=== PATIENT | male | born 2000 | race Caucasian/White ===

== ENCOUNTER 2018-08-17 05:23 | Observation (INO) | payer BC ==
[2018-08-17] MEDS ORDERED: NS 0.9% 1000 ML** 1,000 ML IV ONE (05:49)
[2018-08-17] MEDS ORDERED: Ondansetron INJ* 2 MG/ML VIAL IV ONE (05:49)
--- NOTE | 2018-08-17 05:51 | ED ---
Abdominal Pain/Male - HPI Summary HPI Summary: Pt. is a 18 y.o male who presents to the ER for N/V and abdominal pain x 2 days. Pt. notes he started with vomiting and went to and was rx zofran. Pt. states he continued to vomit even with taking zofran. Pt. states today he started with RLQ abd. pain that has been getting constant. Pain is increased with movement and walking. Associated sxs of chills. No past medical hx. Sxs are moderate in severity. No sx hx. - History of Current Complaint Chief Complaint: EDAbdPain Stated Complaint: RIGHT ABD PAIN PER PT Time Seen by Provider: 08/17/18 05:34 Hx Obtained From: Patient Pain Intensity: 5 - Allergies/Home Medications Allergies/Adverse Reactions: Allergies Allergy/AdvReac Type Severity Reaction Status Date / Time No Known Allergies Allergy Verified 08/17/18 05:33 PMH/Surg Hx/FS Hx/Imm Hx Previously Healthy: Yes Infectious Disease History: No Infectious Disease History: Denies: Traveled Outside the [place] in Last 30 Days - Family History Known Family History: Positive: Non-Contributory - Social History Occupation: Student Lives: With Family Review of Systems Positive: Chills. Negative: Fever Eyes: Negative ENT: Negative Cardiovascular: Negative Respiratory: Negative Positive: Abdominal Pain, Vomiting, Nausea. Negative: Diarrhea Genitourinary: Negative Negative: dysuria, discharge, flank pain Neurological: Negative All Other Systems Reviewed And Are Negative: Yes Physical Exam Triage Information Reviewed: Yes Vital Signs On Initial Exam: Initial Vitals Temp Pulse Resp BP Pulse Ox 97.5 F 68 16 147/96 96 08/17/18 05:30 08/17/18 05:30 08/17/18 05:30 08/17/18 05:30 08/17/18 05:30 Vital Signs Reviewed: Yes Appearance: Positive: Well-Appearing - Pt. sitting up in bed in NAD. Pleasant. Skin: Positive: Warm, Dry Head/Face: Positive: Normal Head/Face Inspection Eyes: Positive: Normal, EOMI, LASHONDA Neck: Positive: Supple Respiratory/Lung Sounds: Positive: Clear to Auscultation, Breath Sounds Present Cardiovascular: Positive: Normal, RRR Abdomen Description: Positive: Other: - Abd. is soft with moderate tenderness to RLQ. Musculoskeletal: Positive: Normal, Strength/ROM Intact Neurological: Positive: Normal, CN Intact II-III Psychiatric: Positive: Affect/Mood Appropriate Diagnostics - Vital Signs Vital Signs Temp Pulse Resp BP Pulse Ox 08/17/18 05:30 97.5 F 68 16 147/96 96 - Laboratory Result Diagrams: 08/17/18 05:54 08/17/18 05:54 Lab Statement: Any lab studies that have been ordered have been reviewed, and results considered in the medical decision making process. Abdominal Pain Male Course/Dx - Course Course Of Treatment: patient presenting with right lower quadrant abdominal pain. Is afebrile with stable vital signs. Patient initially declines pain medication. We'll obtain labs and CT scan to evaluate for potential appendicitis. Labs showed WBC of 22,000. Patient started complaining of more pain and was given a dose of Toradol with good improvement. CT scan per radiology: IMPRESSION: #. Acute appendicitis with significant periappendiceal inflammatory change and small. volume of ascites. Negative for free air or loculated periappendiceal abscess collection. Negative for associated bowel obstruction. On-call surgery was paged, Dr. Garcia, who promptly evaluated patient in the ER and took him to the OR for appendectomy. Patient given a dose of Zosyn on the way to the OR. - Diagnoses Differential Diagnosis/HQI/PQRI: Appendicitis, Renal Colic, Testicular Torsion, Ureteral Stone Provider Diagnoses: Appendicitis Discharge - Sign-Out/Discharge Documenting (check all that apply): Patient Departure Patient Received Moderate/Deep Sedation with Procedure: No - Discharge Plan Condition: Stable Disposition: ADMITTED TO [facility] - Billing Disposition and Condition Condition: STABLE Disposition: Admitted to [facility]
[2018-08-17 06:19] LABS: ALT 13 U/L (7-52); AST 18 U/L (13-39); Albumin 4.9 g/dL (3.2-5.2); Albumin/Globulin Ratio 1.7 (1-3); Alkaline Phosphatase 43 U/L (34-104); Anion Gap 11 mmol/L (2-11); BUN/Creatinine Ratio 14.3 (8-20); Blood Urea Nitrogen 13 mg/dL (6-24); C Reactive Protein 11.67 mg/L (<8.01); CO2 Carbon Dioxide 28 mmol/L (22-32); Calcium 10.2 mg/dL (8.6-10.3); Chloride 96 mmol/L (101-111); EGFR African American 128.5 (>60); EGFR Non-African American 106.2 (>60); Globulin 2.9 g/dL (2-4); Glucose 129 mg/dL (70-100); Sodium 135 mmol/L (135-145); Total Protein 7.8 g/dL (6.4-8.9)
[2018-08-17 06:29] LABS: Hematocrit 46 % (42-52); Hemoglobin 16.2 g/dL (14.0-18.0); Mean Corpuscular HGB Conc 36 g/dL (31-36); Mean Corpuscular Hemoglobin 33 pg (27-31); Mean Corpuscular Volume 93 fL (80-94); Mean Platelet Volume 8.7 fL (7.4-10.4); Platelet Count 274 10^3/uL (150-450); Red Blood Count 4.89 10^6 /uL (4.18-5.48); Red Cell Distribution Width 13 % (10-15); White Blood Count 22.3 10^3/uL (3.5-10.8)
[2018-08-17] MEDS ORDERED: Ketorolac INJ* 30 MG/ML 1 ML VIAL IV PUSH ONE (06:38)
[2018-08-17] MEDS ORDERED: Iohexol 300* (CONTRAST) 10 ML SDV IV ONE (07:09)
[2018-08-17 07:27] LABS: ABS Basophils 0.1 10^3/ul (0-0.2); ABS Lymphocytes 2.2 10^3/ul (1.0-4.8); ABS Monocytes 2.1 10^3/ul (0-0.8); Eosinophil % 0.1 %; Lymphocyte % 9.7 %; Nucleated Red Blood Cells % 0.1
[2018-08-17] MEDS ORDERED: ED Piperacillin/Tazobac 3.375 3.375 GM/100 ML PREMIX.SET IVPB ONE (09:20)
[2018-08-17] MEDS ORDERED: Bupivacaine 0.5%* 50 ML VIAL ONE (09:25)
[2018-08-17] MEDS ORDERED: ceFOXitin 2 GM IVPREMIX* 2 GM/50 ML BAG ONE (09:37)
[2018-08-17] MEDS ORDERED: Naloxone* 0.4 MG/ML 1 ML VIAL IV PRN (09:49)
[2018-08-17] MEDS ORDERED: fentaNYL* 50 MCG/ML 2 ML VIAL (100 MCG VIAL) IV PRN (09:49)
[2018-08-17] MEDS ORDERED: Ondansetron INJ* 2 MG/ML VIAL IV PRN (09:49)
[2018-08-17] MEDS ORDERED: DiMENhydriNATE IV* 50 MG/ML VIAL IV PUSH PRN (09:49)
[2018-08-17] MEDS ORDERED: HYDROmorphone INJ1* 1 MG/ML SYRINGE IV PRN (09:49)
[2018-08-17] MEDS ORDERED: Acetaminophen IV 1GM/100ML * 1,000 MG/100 ML VIAL IVPB ONE (09:49)
[2018-08-17] MEDS ORDERED: HYDROcodone/ACETAMIN 5-325 MG* 1 TAB PO PRN (09:49)
[2018-08-17] MEDS ORDERED: Ketorolac INJ* 30 MG/ML 1 ML VIAL IV PRN (09:49)
[2018-08-17] MEDS ORDERED: Midazolam* 1 MG/ML 2 ML VIAL (2 MG) ONE (09:55)
[2018-08-17] MEDS ORDERED: fentaNYL* 50 MCG/ML 5 ML VIAL (250 MCG VIAL) ONE (09:55)
[2018-08-17] MEDS ORDERED: Rocuronium* 10 MG/ML VIAL ONE (09:55)
[2018-08-17] MEDS ORDERED: Lidocaine 2% PF * 5 ML VIAL ONE (09:55)
[2018-08-17] MEDS ORDERED: Succinylcholine* 20 MG/ML 10 ML VIAL ONE (09:58)
[2018-08-17] MEDS ORDERED: Ondansetron INJ* 2 MG/ML VIAL ONE (10:30)
[2018-08-17] MEDS ORDERED: Dexamethasone IV* 4 MG/ML 1 ML (4 MG) ONE (10:30)
--- NOTE | 2018-08-17 10:46 | HP ---
ADMISSION HISTORY AND PHYSICAL: DATE OF ADMISSION: 08/17/18 CHIEF COMPLAINT: Abdominal pain. HISTORY OF PRESENT ILLNESS: This pleasant 18-year-old gentleman presented to the emergency room with abdominal pain. The pain started Saturday night, which was more of a discomfort and general nausea and uneasy feeling in his abdomen, and this persisted. He went to the urgent care on Saturday where he was diagnosed with gastroenteritis with the symptoms persisted and then over the last 6 hours, localized to the right lower quadrant. He came to the emergency room. Workup there included CT scan of the abdomen and pelvis, which revealed appendicitis. He had an elevated white blood cell count. PAST MEDICAL HISTORY: Denies history of cardiac, liver, kidney, or lung disease. PAST SURGICAL HISTORY: No prior abdominal surgery. MEDICATIONS: None. ALLERGIES: None. FAMILY HISTORY: Two relatives had appendicitis. I spoke to his mother who is coming in from [place]. SOCIAL HISTORY: He is a college student at [employer]. No tobacco or alcohol use. REVIEW OF SYSTEMS: General: Denies weight loss or change of appetite. HEENT: No changes in vision, hearing, or swallowing. No sore throat. Cardiac: No chest pain. Pulmonary: No cough. GI: No blood per rectum. : No hematuria. Skin: Denies rash. Neuro: No headache or dizziness. Musculoskeletal: No extremity weakness. Psych: No anxiety or depression. PHYSICAL EXAMINATION GENERAL: Pleasant gentleman, complaining of some abdominal discomfort. HEENT: The sclerae are anicteric. Oral mucosa is pink and moist. NECK: Supple. No JVD. No masses. LUNGS: Clear. HEART: Regular. ABDOMEN: Soft, nondistended. Tender in the right lower quadrant. No masses or organomegaly. EXTREMITIES: No clubbing, cyanosis or edema. GENITOURINARY: The genitalia appear normal. NEUROLOGIC: Grossly intact. No focal motor or sensory deficits. SKIN: No rash, petechiae, or jaundice. IMPRESSION AND PLAN: Appendicitis. We discussed surgery, laparoscopic appendectomy with risks including, but not limited to, bleeding, infection, injury to intra-abdominal contents including the bowel, the possibility of an open procedure. He seemed to understand and agreed to the procedure, and all questions were answered. [id number]/[facility] #: [id number] [facility] CENTERAnnette
--- NOTE | 2018-08-17 12:07 | OP ---
DATE OF OPERATION: 08/17/18 - ROOM #340 DATE OF : 89 ATTENDING SURGEON: Collin Garcia MD PRE-OP DIAGNOSIS: Appendicitis. POST-OP DIAGNOSIS: Appendicitis. OPERATIVE PROCEDURE: Laparoscopic appendectomy. INDICATION FOR PROCEDURE: Appendicitis. Risks including, but not limited to bleeding, infection, injury to intraabdominal contents including the bowel were explained to the patient, who seemed to understand and agreed to the procedure and all questions were answered. DESCRIPTION OF PROCEDURE: The patient taken to the operating room, placed supine. Preoperative antibiotics were given. After the successful induction of general endotracheal anesthesia, the abdomen was prepped and draped in sterile fashion. Time-out was performed, correct patient, correct procedure. A left lower quadrant 5-mm trocar was placed under direct visualization of a camera using a bladeless Optiview trocar. Pneumoperitoneum was achieved at 15 mmHg. The camera was placed in the abdomen, the abdomen was scanned. There was no obvious injury from trocar placement. A 12-mm infraumbilical trocar and a 5-mm suprapubic trocar were placed under direct visualization of the camera. The patient was tilted slightly towards the left and placed in a slight Trendelenburg position. The cecum was gently mobilized exposing an acutely inflamed appendix. The base was isolated and divided with a stapler. The meso- appendix was taken with a staple load as well. The mesoappendix was taken with the vascular silver load and the bowel/appendix was taken with the gold load. It was placed into an Endobag and removed through the umbilical port site. There was no bleeding. Hemostasis was intact. Some fluid in the pelvis was swept up with a gauze sponge and removed. A quick scan of the abdomen revealed no obvious injury or other problems. Pneumoperitoneum was released from the abdomen. The trocars were removed. An 0 Vicryl suture was placed in the umbilical fascia and the skin was closed with Monocryl and glue. He tolerated the procedure well. He was extubated and taken to the recovery room in stable condition. [id number]/[facility] #: [id number] [facility]ALTHAnnette
[2018-08-17] MEDS ORDERED: oxyCODONE/Acetamin 5/325 MG* TAB PO PRN (12:08)
[2018-08-17 16:09] VITALS: BP 146/82
== END 2018-08-17 17:00 | disposition home or self-care (01) ==
LOC: ED 05:23 → OR 09:25 → SSU 11:58
PROVIDERS: ADMIT Surgery; ATTEND Surgery
DX: K35.80 Unspecified acute appendicitis (principal); R11.2 Nausea with vomiting, unspecified; R10.9 Unspecified abdominal pain
CPT/HCPCS: 36415; 74177; 80053; 83605; 83690; 85025; 86140; 88304; 96374; 96375; 99283; G0378; J0330; J0694; J1100; J1885; J2250; J2405; J2543; J3010; J3490; Q9967